=== PATIENT | male | born 2000 | race Two or more races ===

== ENCOUNTER 2022-01-08 09:14 | Emergency (ER) | payer BC ==
[~2022-01-08] VITALS: Ht 170.2 cm; Wt 72.4 kg
[2022-01-08] MEDS ORDERED: IBUP-1114 PO (09:23)
[2022-01-08] MEDS ORDERED: CLIN150C17 PO (09:23)
[2022-01-08] MEDS ORDERED: dexameTHASONE 20MG/5ML VIAL (J1100 PER 1MG) IV ONE (10:00)
[2022-01-08 10:43] LABS: HEMATOCRIT 43.5 % (42.0-52.0); HEMOGLOBIN 13.9 g/dl (13.5-17.5); MEAN CORPUSCULAR HEMOGLOBIN 22.7 pg (27.0-33.0); MEAN CORPUSCULAR VOLUME 71.2 fl (80.0-96.0); PLATELET COUNT, AUTOMATED 175 10^3/uL (150-450); RED BLOOD COUNT 6.11 10^6/uL (4.30-6.10); WHITE BLOOD COUNT 22.1 10^3/uL (4.0-10.0)
[2022-01-08 10:55] LABS: BLOOD UREA NITROGEN 7 MG/DL (7-18); CALCIUM LEVEL 9.6 MG/DL (8.5-10.1); CARBON DIOXIDE LEVEL 27 MEQ/L (21-32); CHLORIDE LEVEL 103 MEQ/L (98-107); CREATININE FOR GFR 0.86 MG/DL (0.70-1.30); GLOMERULAR FILTRATION RATE > 60.0 (>60); GLUCOSE, FASTING 99 MG/DL (70-100); SODIUM LEVEL 137 MEQ/L (136-145)
[2022-01-08 11:10] LABS: RSV AMPLIFICATION NEGATIVE (NEGATIVE)
[2022-01-08 11:15] LABS: ATYPICAL LYMPH 33 % (0-5); LYMPHOCYTES 31 % (16-44); MONOCYTES 8 % (0-5); NEUTROPHILS 24 % (28-66)
[2022-01-08 11:18] LABS: SMUDGE CELLS 1+
[2022-01-08 11:19] LABS: ANISOCYTOSIS 1+; PLATELET ESTIMATE NORMAL (NORMAL)
[2022-01-08 11:20] LABS: MICROCYTOSIS 2+
[2022-01-08] MEDS ORDERED: CLINDAMYCIN 900 MG in IV 1 EA IV ONE (11:30)
[2022-01-08] MEDS ORDERED: ISOVUE-370 76% 100ML VIAL As Ordered ONE (11:37)
[2022-01-08 12:40] LABS: MONO SCRN POSITIVE (NEGATIVE)
[2022-01-08 13:00] VITALS: BP 109/58
== END 2022-01-08 13:15 | disposition home or self-care (01) ==
LOC: M ED 09:14
DX: J02.9 Acute pharyngitis, unspecified (principal); B27.90 Infectious mononucleosis, unspecified without complication; U07.1 COVID-19; D72.829 Elevated white blood cell count, unspecified; Z88.0 Allergy status to penicillin; F17.210 Nicotine dependence, cigarettes, uncomplicated
CPT/HCPCS: 70491; 80048; 85025; 86308; 87631; 87880; 96374; 99284; J1100; Q9967

== ENCOUNTER 2022-06-28 21:50 | Inpatient (IN) | payer BC ==
[~2022-06-28] VITALS: Ht 170.2 cm; Wt 79.2 kg
[~2022-06-28 21:50] MED LIST: CLIN150C17 PO; IBUP-1114 PO
[2022-06-28] MEDS ORDERED: ISOVUE-370 76% 100ML VIAL As Ordered ONE (22:05)
[2022-06-28 22:16] LABS: BASO # 0.1 10^3/uL (0.0-0.2); BASO % 0.7 % (0.0-1.0); EOS # 0.2 10^3/uL (0.0-0.5); EOS % 2.1 % (0.0-3.0); HEMATOCRIT 43.9 % (42.0-52.0); HEMOGLOBIN 13.8 g/dl (13.5-17.5); LYMPH # 4.4 10^3/uL (1.5-5.0); MEAN CORPUSCULAR HEMOGLOBIN 22.2 pg (27.0-33.0); MEAN CORPUSCULAR HGB CONC 31.4 g/dl (32.0-36.5); MEAN CORPUSCULAR VOLUME 70.6 fl (80.0-96.0); MONO # 0.7 10^3/uL (0.0-0.8); MONO % 8.8 % (2.0-8.0); NEUTROPHILS # 2.2 10^3/uL (1.5-8.5); PLATELET COUNT, AUTOMATED 245 10^3/uL (150-450); RED BLOOD COUNT 6.22 10^6/uL (4.30-6.10); WHITE BLOOD COUNT 7.5 10^3/uL (4.0-10.0)
[2022-06-28 22:26] LABS: INR 0.96; PROTHROMBIN TIME 13.2 SECONDS (12.7-14.5)
[2022-06-28 22:27] LABS: PARTIAL THROMBOPLASTIN TIME 26.7 SECONDS (25.9-37.0)
[2022-06-28 22:38] LABS: APPEARANCE, URINE MANUAL CLEAR (CLEAR); BILIRUBIN, URINE MANUAL NEGATIVE (NEGATIVE); BLOOD URINE MANUAL NEGATIVE (NEGATIVE); COLOR, URINE MANUAL YELLOW (YELLOW); GLUCOSE, URINE (UA) MANUAL NEGATIVE (NEGATIVE); KETONE, URINE MANUAL NEGATIVE (NEGATIVE); LEUKOCYTE ESTERASE, URINE MAN NEGATIVE (NEGATIVE); NITRITE, URINE MANUAL NEGATIVE (NEGATIVE); PH,URINE MAN 6.5 UNITS (5.0 - 7.0); PROTEIN, URINE MANUAL NEGATIVE (NEGATIVE); UROBILINOGEN, URINE MANUAL NORMAL (NORMAL)
[2022-06-28 22:41] LABS: CK-MB VALUE MASS < 1.0 NG/ML (<3.6); CPK CREATINE PHOSPHOKINASE 179 U/L (39-308); MB/CK RELATIVE INDEX 0.56 (< OR =4)
[2022-06-28 22:43] LABS: ACETAMINOPHEN LEVEL < 2.0 UG/ML (10.0-30.0); ALBUMIN 3.9 GM/DL (3.2-5.2); ALT/SGPT 108 U/L (12-78); AMYLASE 67 U/L (25-115); BILIRUBIN,DIRECT 0.1 MG/DL (0.0-0.2); BILIRUBIN,TOTAL 0.2 MG/DL (0.2-1.0); ETHYL ALCOHOL (ETHANOL) 0.276 % (0.000-0.010); LIPASE 85 U/L (73-393); SALICYLATE LEVEL < 1.7 MG/DL (5.0-30.0); TOTAL PROTEIN 7.9 GM/DL (6.4-8.2)
[2022-06-28 23:02] LABS: AMPHETAMINES LEVEL URINE NEGATIVE (NEGATIVE); BARBITURATES URINE NEGATIVE (NEGATIVE); BENZODIAZEPINES URINE NEGATIVE (NEGATIVE); CANNABINOIDS URINE NEGATIVE (NEGATIVE); COCAINE METABOLITE URINE NEGATIVE (NEGATIVE); METHADONE URINE NEGATIVE (NEGATIVE); OPIATES URINE NEGATIVE (NEGATIVE); PHENCYCLIDINE URINE NEGATIVE (NEGATIVE)
[2022-06-28 23:11] LABS: RSV AMPLIFICATION NEGATIVE (NEGATIVE)
[2022-06-29] MEDS ORDERED: LORazepam 1 MG TAB PO STA (08:49)
[2022-06-29] MEDS ORDERED: PROP20TA72 PO (11:45)
[2022-06-29] MEDS ORDERED: LEXA1TAB PO (11:45)
[2022-06-29] MEDS ORDERED: HOME MED LIST COMPLETE! XX SCH (11:50)
[2022-06-29] MEDS ORDERED: IBUPROFEN 600MG TAB PO ONE (16:25)
[2022-06-29] MEDS ORDERED: PROPRANOLOL 10 MG TAB PO ONE (20:00)
[2022-06-30] MEDS: ESCITALOPRAM OXALATE 10 MG TAB (LEXAPRO) PO SCH (08:31)
[2022-06-30] MEDS: PROPRANOLOL 10 MG TAB PO SCH ×2 (08:33→21:00)
[2022-06-30] MEDS ORDERED: MOM 30ML SUSPENSION UDC PO PRN (19:00)
[2022-06-30] MEDS ORDERED: NICOTINE 21MG/24HR 1 EA TRANSDERMAL TD PRN (19:00)
[2022-06-30] MEDS ORDERED: OLANZapine ORAL DISINTEGRATING TAB 5MG PO PRN (19:00)
[2022-06-30] MEDS ORDERED: ACETAMINOPHEN TAB 650MG DOSE (2X325MG) PO PRN (19:00)
[2022-06-30] MEDS ORDERED: MAALOX 30 ML SUSP *UDC PO PRN (19:00)
[2022-06-30] MEDS: THIAMINE 100 MG TAB PO SCH (21:00)
[2022-06-30] MEDS ORDERED: LORazepam 2 MG TAB PO PRN (22:45)
[2022-06-30 22:56] VITALS: BP 109/64
[2022-07-01 06:00] VITALS: BP 120/57
[2022-07-01] MEDS: FOLIC ACID 1MG TAB PO SCH (09:19)
[2022-07-01] MEDS: ESCITALOPRAM OXALATE 10 MG TAB (LEXAPRO) PO SCH (09:19)
[2022-07-01] MEDS: MULTIVITAMINS/MINERALS THERAP 1 TAB PO SCH (09:20)
[2022-07-01] MEDS: PROPRANOLOL 10 MG TAB PO SCH ×2 (09:20→20:24)
[2022-07-01] MEDS: THIAMINE 100 MG TAB PO SCH ×2 (09:20→20:24)
[2022-07-01 16:05] VITALS: BP 106/59
[2022-07-01] MEDS: traZODone 50 MG TAB PO PRN (20:23)
[2022-07-02 06:40] VITALS: BP 115/55
[2022-07-02 08:47] VITALS: BP 118/72
[2022-07-02] MEDS: FOLIC ACID 1MG TAB PO SCH (08:48)
[2022-07-02] MEDS: MULTIVITAMINS/MINERALS THERAP 1 TAB PO SCH (08:48)
[2022-07-02] MEDS: THIAMINE 100 MG TAB PO SCH ×2 (08:48→21:07)
[2022-07-02] MEDS: ESCITALOPRAM OXALATE 10 MG TAB (LEXAPRO) PO SCH (08:48)
[2022-07-02] MEDS: PROPRANOLOL 10 MG TAB PO SCH ×2 (08:49→20:15)
[2022-07-02 16:35] VITALS: BP 128/61
[2022-07-02] MEDS: traZODone 50 MG TAB PO PRN (20:14)
[2022-07-03 06:27] VITALS: BP 103/57
[2022-07-03] MEDS: THIAMINE 100 MG TAB PO SCH (08:33)
[2022-07-03] MEDS: MULTIVITAMINS/MINERALS THERAP 1 TAB PO SCH (08:33)
[2022-07-03] MEDS: ESCITALOPRAM OXALATE 10 MG TAB (LEXAPRO) PO SCH (08:33)
[2022-07-03] MEDS: FOLIC ACID 1MG TAB PO SCH (08:34)
[2022-07-03] MEDS: PROPRANOLOL 10 MG TAB PO SCH ×2 (08:35→21:09)
[2022-07-03 16:52] VITALS: BP 106/55
[2022-07-03] MEDS: traZODone 50 MG TAB PO PRN (21:09)
[2022-07-04 06:22] VITALS: BP 118/58
[2022-07-04 08:41] VITALS: BP 118/58
[2022-07-04] MEDS: PROPRANOLOL 10 MG TAB PO SCH (08:41)
[2022-07-04] MEDS: MULTIVITAMINS/MINERALS THERAP 1 TAB PO SCH (08:41)
[2022-07-04] MEDS: ESCITALOPRAM OXALATE 10 MG TAB (LEXAPRO) PO SCH (08:41)
[2022-07-04] MEDS: FOLIC ACID 1MG TAB PO SCH (08:41)
[2022-07-04] MEDS ORDERED: LEXA1TAB PO (15:49)
[2022-07-04] MEDS ORDERED: TRAZ-252 PO (15:49)
[2022-07-04] MEDS ORDERED: PROP10TA56 PO (15:49)
== END 2022-07-04 16:00 | disposition home or self-care (01) | DRG 754 ==
LOC: M ED 21:50 → EDBD 21:50 → M ED INP 06-30 19:00 → M PSY 06-30 23:08
PROVIDERS: ADMIT Psychiatry & Neurology Psychiatry; ATTEND Psychiatry & Neurology Psychiatry
DX: F32.A Depression, unspecified (principal); F41.1 Generalized anxiety disorder; F41.0 Panic disorder [episodic paroxysmal anxiety]; F10.920 Alcohol use, unspecified with intoxication, uncomplicated; Z20.822 Contact with and (suspected) exposure to COVID-19; Z88.0 Allergy status to penicillin; Z79.899 Other long term (current) drug therapy; T14.91XA Suicide attempt, initial encounter; Y92.9 Unspecified place or not applicable